=== PATIENT | male | born 1950 | race Caucasian/White ===

== ENCOUNTER 2019-11-07 10:49 | Emergency (ER) | payer OTHER ==
[2019-11-07] MEDS: Sodium Chloride 0.9% 10 ML Syringe FLUSH PRN ×2 (11:00→12:14)
[2019-11-07] MEDS ORDERED: Nitroglycerin 0.4 MG Tab.SL ONE (11:09)
[2019-11-07] MEDS ORDERED: Aspirin 81 MG Tab.Chew PO ONE (11:11)
--- NOTE | 2019-11-07 11:22 | EDM.PDOC ---
ED HPI GENERAL MEDICAL PROBLEM - General Chief Complaint: Chest Pain Stated Complaint: TIGHTNESS OF CHEST Time Seen by Provider: 11/07/19 11:05 Source of Information: Reports: Patient History Limitations: Reports: No Limitations - History of Present Illness INITIAL COMMENTS - FREE TEXT/NARRATIVE: Patient presents with tightness across mid-chest that started 3 days ago with any exertion or physical activity such as walking a few feet. Since then it occurs every time he exerts and always goes away within 2 minutes of resting. A 5-10# sack of flour on his chest is a good description he says. He also feels it when he takes a deep breath. This is new and he denies any history of lung or heart problems. 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 He has CLL. - Related Data Allergies Allergy/AdvReac Type Severity Reaction Status Date / Time No Known Drug Allergies Allergy Cannot Verified 11/07/19 10:54 Remember Home Meds: Home Meds Multivitamin [Multi Vitamin Daily] 1 tab PO DAILY 04/19/14 [History] Simvastatin [Zocor] 04/19/14 [History] ED ROS GENERAL - Review of Systems Review Of Systems: See Below Constitutional: Reports: Weakness (general). Denies: Fever, Chills, Malaise, Diaphoresis HEENT: Denies: Ear Pain, Throat Pain, Vision Change Respiratory: Reports: Shortness of Breath. Denies: Cough Cardiovascular: Reports: Chest Pain, Dyspnea on Exertion. Denies: Blood Pressure Problem, Lightheadedness, Syncope Endocrine: Denies: Fatigue GI/Abdominal: Denies: Abdominal Pain, Nausea, Vomiting : Reports: No Symptoms Musculoskeletal: Denies: Neck Pain, Shoulder Pain, Arm Pain, Back Pain Skin: Denies: Cyanosis, Jaundice, Mottled, Pallor, Diaphoresis Neurological: Denies: Confusion, Dizziness, Headache, Seizure, Syncope, Trouble Speaking, Difficulty Walking Psychiatric: Denies: Agitation, Anxiety, Confusion ED EXAM, GENERAL - Physical Exam Exam: See Below Exam Limited By: No Limitations General Appearance: Alert, WD/WN, No Apparent Distress Eye Exam: Bilateral Eye: EOMI, Normal Inspection, PERRL Ears: Normal External Exam, Hearing Grossly Normal Nose: Normal Inspection, No Blood Throat/Mouth: Normal Inspection, Normal Lips, Normal Voice, No Airway Compromise Head: Atraumatic, Normocephalic Neck: Normal Inspection, Supple, Non-Tender, Full Range of Motion Respiratory/Chest: No Respiratory Distress, Lungs Clear, Normal Breath Sounds, No Accessory Muscle Use Cardiovascular: Normal Peripheral Pulses, Regular Rate, Rhythm, No Murmur Peripheral Pulses: 2+: Carotid (L), Carotid (R), Radial (L), Radial (R), Posterior Tibial (L), Posterior Tibial (R) GI/Abdominal: Normal Bowel Sounds, Soft, Non-Tender, No Organomegaly, No Distention Back Exam: Normal Inspection, Full Range of Motion. No: CVA Tenderness (L), CVA Tenderness (R) Extremities: Normal Inspection, Normal Range of Motion, Non-Tender Neurological: Alert, Oriented, Normal Cognition, No Motor/Sensory Deficits Psychiatric: Normal Affect, Normal Mood Skin Exam: Warm, Dry, Intact, Normal Color, No Rash Course - Vital Signs Last Recorded V/S: Last Vital Signs Temp 99.1 F 11/07/19 11:01 Pulse 99 11/07/19 11:01 Resp 20 11/07/19 11:01 BP 149/64 H 11/07/19 11:01 Pulse Ox 96 11/07/19 12:11 - Orders/Labs/Meds Orders: Active Orders 24 hr Category Date Time Status EKG Documentation Completion [RC] ASDIRECTED Care 11/07/19 10:56 Active Peripheral IV Care [RC] . DIRECTED Care 11/07/19 10:55 Active Heparin Sodium/D5W 250 ml Med 11/07/19 12:30 Ordered IV TITRATE Sodium Chloride 0.9% [Saline Flush] Med 11/07/19 10:55 Active 10 ml FLUSH Q8HR PRN Peripheral IV Insertion Adult [OM.PC] Routine Oth 11/07/19 10:55 Ordered EKG 12 Lead [EK] Stat Ther 11/07/19 10:55 Ordered Medication Orders Heparin Sodium/Dextrose () 250 mls @ 10.56 mls/hr IV TITRATE ALIX; Protocol Last Admin: 11/07/19 12:29 Dose: 12 units/kg/hr, 10.56 mls/hr Sodium Chloride (Saline Flush) 10 ml FLUSH Q8HR PRN PRN Reason: keep vein open Last Admin: 11/07/19 12:14 Dose: 10 ml Admin: 11/07/19 11:00 Dose: 10 ml Labs: Laboratory Tests 11/07/19 11/07/19 Range/Units 11:00 11:00 WBC 4.90 L (5.00-10.00) 10^3/uL RBC 3.20 L (4.50-6.00) 10^6/uL Hgb 10.9 L D (13.0-17.0) g/dL Hct 32.5 L (40.0-52.0) % MCV 101.6 H D (82.0-92.0) fL MCH 34.1 H (27.0-31.0) pg MCHC 33.5 (32.0-36.0) g/dL RDW 13.5 (11.5-14.5) % Plt Count 92 L (150-400) 10^3/uL MPV 9.8 (7.4-10.4) fL Immature Gran % (Auto) 0.4 (0.0-5.0) % Neut % (Auto) 81.9 H (50.0-70.0) % Lymph % (Auto) 7.1 L (20.0-40.0) % [place] % (Auto) 9.0 H (2.0-8.0) % Eos % (Auto) 1.4 (1.0-3.0) % Baso % (Auto) 0.2 (0.0-1.0) % Immature Gran # (Auto) 0.02 (0.00-0.50) 10^3/uL Neut # (Auto) 4.01 (2.50-7.00) 10^3/uL Lymph # (Auto) 0.35 L (1.00-4.00) 10^3/uL [place] # (Auto) 0.44 (0.10-0.80) 10^3/uL Eos # (Auto) 0.07 L (0.10-0.30) 10^3/uL Baso # (Auto) 0.01 (0.00-0.10) 10^3/uL Sodium 144 (136-145) mmol/L Potassium 3.8 (3.3-5.3) mmol/L Chloride 106 (98-115) mmol/L Carbon Dioxide 25.0 (21.0-32.0) mmol/L Anion Gap 16.8 H (5-15) mmol/L BUN 23 (6-25) mg/dL Creatinine 0.90 (0.51-1.17) mg/dL Est Cr Clr Drug Dosing 77.73 mL/min Estimated GFR (MDRD) > 60 mL/min Glucose 169 H (75 - 99) mg/dL Calcium 8.3 L (8.7-10.3) mg/dL Troponin I < 0.04 (0.00-0.070) ng/mL Meds: Medications Generic Name Dose Route Start Last Admin Trade Name Freq PRN Reason Stop Dose Admin Heparin Sodium/Dextrose 250 mls @ 10.56 mls/hr 11/07/19 12:30 11/07/19 12:29 IV 12 units/kg/hr TITRATE ALIX 10.56 mls/hr Administration Protocol 12 UNITS/KG/HR Sodium Chloride 10 ml 11/07/19 10:55 11/07/19 12:14 Saline Flush FLUSH 10 ml Q8HR PRN Administration keep vein open Discontinued Medications Generic Name Dose Route Start Last Admin Trade Name Freq PRN Reason Stop Dose Admin Aspirin 324 mg 11/07/19 11:11 11/07/19 11:14 Aspirin PO 11/07/19 11:12 324 mg ONETIME ONE Administration Heparin Sodium (Porcine) 5,000 units 11/07/19 12:05 11/07/19 12:14 Heparin Sodium IVPUSH 11/07/19 12:06 5,000 units ONETIME ONE Administration Heparin Sodium/Dextrose Confirm 11/07/19 12:26 Administered 11/07/19 12:27 Dose 250 mls @ as directed .ROUTE .STK-MED ONE Nitroglycerin Confirm 11/07/19 11:09 11/07/19 12:14 Nitrostat Administered 11/07/19 11:10 Not Given Dose 0.4 mg .ROUTE .STK-MED ONE - Re-Assessments/Exams Free Text/Narrative Re-Assessment/Exam: 11/07/19 12:14 ASA 324 has been given. No nitro since he isn't having symptoms at rest. EKG shows Q-waves in III and AVF but no ST changes, a PVC too. Trop is <0.04. Patient does all his medical care at [facility] so I discussed this with Dr. Ferguson, ludlow machine operator at [facility] who feels this is ACS/unstable angina with the recent significant change. He advised heparin bolus and transfer to a microbiology lab technician. I discussed case with Dr. Ambriz at [facility] who accepted for transfer and also wants heparin drip started. Discussed findings and treatment plan with patient who agrees with plan. He is stable and hasn't had a return of symptoms while resting in ER. Departure - Departure Time of Disposition: 12:31 Disposition: DC/Tfer to Acute Hospital 02 Reason for Transfer *Q: Primary PCI Indicated Condition: Good Clinical Impression: ACS (acute coronary syndrome), Unstable angina Referrals: Neha Ray HISTORIOGRAPHY PROFESSOR [Primary Care Provider] - Forms: ED Department Discharge Sepsis Event Note - Evaluation Sepsis Screening Result: No Definite Risk - Focused Exam Vital Signs: Vital Signs Temp Pulse Resp BP Pulse Ox Pulse Ox 11/07/19 12:11 96 11/07/19 11:01 99.1 F 99 20 149/64 H 94 L Date Exam was Performed: 11/07/19 Time Exam was Performed: 12:33 - My Orders Last 24 Hours: My Active Orders 11/07/19 10:55 Peripheral IV Care [RC] . DIRECTED Sodium Chloride 0.9% [Saline Flush] 10 ml FLUSH Q8HR PRN Peripheral IV Insertion Adult [OM.PC] Routine EKG 12 Lead [EK] Stat 11/07/19 10:56 EKG Documentation Completion [RC] ASDIRECTED 11/07/19 12:30 Heparin Sodium/D5W 250 ml IV TITRATE - Assessment/Plan Last 24 Hours: My Active Orders 11/07/19 10:55 Peripheral IV Care [RC] . DIRECTED Sodium Chloride 0.9% [Saline Flush] 10 ml FLUSH Q8HR PRN Peripheral IV Insertion Adult [OM.PC] Routine EKG 12 Lead [EK] Stat 11/07/19 10:56 EKG Documentation Completion [RC] ASDIRECTED 11/07/19 12:30 Heparin Sodium/D5W 250 ml IV TITRATE
[2019-11-07 11:34] LABS: ANION GAP 16.8 mmol/L (5-15); CHLORIDE,CL 106 mmol/L (98-115); SODIUM,NA 144 mmol/L (136-145)
--- NOTE | 2019-11-07 11:40 | CR ---
[id number] RAD/RAD Chest PA And Lateral EXAM: FRONTAL AND LATERAL CHEST INDICATION: CHEST TIGHTNESS. COMPARISON: None. DISCUSSION: The heart is at upper limits of normal for size without pulmonary edema. Mild linear scarring or atelectasis in the lung bases with no infiltrates identified. No effusions. IMPRESSION: 1. Mild linear scarring or atelectasis in the lung bases. No definite infiltrates or other acute pathology. Kenney Min MD 11/07/19 1139 Thank you for allowing us to participate in the care of your patient.
[2019-11-07] MEDS ORDERED: Heparin Sodium 5,000 Units/ML Vial IVPUSH ONE (12:05)
[2019-11-07] MEDS ORDERED: Heparin Sodium/D5W 250 ML ONE (12:26)
[2019-11-07] MEDS ORDERED: Heparin Sodium/D5W 250 ML IV SCH (12:30)
== END 2019-11-07 12:55 ==
LOC: KA.ED 10:49
DX: I20.0 Unstable angina (principal); Z79.899 Other long term (current) drug therapy
CPT/HCPCS: 71046; 80048; 84484; 85025; 93005; 96365; 99284; 99285-25; A9270-GY; J1644